=== PATIENT | female | born 1965 | race Caucasian/White ===

== ENCOUNTER 2016-06-18 23:42 | Emergency (ER) | payer BC, OTHER ==
[2016-06-19 00:02] LABS: Bilirubin Negative (Negative); Blood, Urine Large (Negative); Glucose, Urine (Dipstick) Negative (Negative); Ketone, Urine Trace mg/dL (Negative); Nitrite Negative (Negative); Protein, Urine (Dipstick) 30 mg/dL (Neg-Trace); Urobilinogen 0.2 mg/dL (0.2-1.0)
[2016-06-19] MEDS ORDERED: Morphine Sulfate 2 MG/ML SYRINGE ONE (00:04)
[2016-06-19] MEDS ORDERED: Ketorolac Tromethamine 30 MG/ML VIAL ONE (00:04)
[2016-06-19 00:05] LABS: RBC/HPF GREATER THAN 50-TNTC HPF (0-3)
[2016-06-19 00:07] LABS: Bacteria/HPF 1+ HPF (None Seen)
--- NOTE | 2016-06-19 02:26 | PICIS ---
[facility] EMERGENCY RECORD TRIAGE (WedJun 18, 2016 23:49 MBOS) TRIAGE NOTES: left flank pain, suprapubic pain, vomiting. (WedJun 18, 2016 23:49 MBOS) PATIENT: NAME: Zaira Jarquin, AGE: 50, GENDER: female, : [id number], TIME OF GREET: WedJun 18, 2016 23:43, PREFERRED LANGUAGE: Tajik, ETHNICITY: Not or , ECODE BILLING MAP: [facility], Zip Code: [address], KG WEIGHT: 62.60, PHONE: , , , PERSON ID: [id number], PCP: none. (WedJun 18, 2016 23:49 MBOS) COMPLAINT: VOMITING; LT SIDE/ABD/BACK PAIN; BLOOD IN URINE. (WedJun 18, 2016 23:49 MBOS) ADMISSION: URGENCY: 3 Urgent, ADMISSION SOURCE: Home, TRANSPORT: CAR, BED: ER -03. (WedJun 18, 2016 23:49 MBOS) ASSESSMENT: Assessment: left flank pain, started about 6 hours ago. Blood in urine last Wednesday. Vomiting the last couple of hours. (23:53 MBOS) PAIN: Patient complains of pain described as, on a scale 0-10 patient rates pain as 10. (23:53 MBOS) IMMUNIZATIONS: Flu vaccine not up to date, Tetanus immunization up to date, Pneumococcal vaccine not up to date. (23:53 MBOS) SIRS SCORING: Heart Rate 55-109 (0), Temp range 93.1-96.7 (1), respiratory rate 12-24 (0), Mental Status altered: no (0), Total SIRS Score 1. (23:53 MBOS) PROVIDERS: TRIAGE NURSE: Leslie Boggs RN. (WedJun 18, 2016 23:49 MBOS) VITAL SIGNS: BP 114/68, Pulse 64, Resp 16, Temp 96.7, (Oral), Pain 10, O2 Sat 97, on Room Air, Time 06/18/2016 23:50. (23:50 MBOS) KNOWN ALLERGIES none CURRENT MEDICATIONS (23:49 MBOS) None VITAL SIGNS VITAL SIGNS: BP: 114/68, Pulse: 64, Resp: 16, Temp: 96.7 (Oral), Pain: 10, O2 sat: 97 on Room Air, Time: 06/18/2016 23:50. (23:50 MBOS) BP: 120/68, Pulse: 64, Pain: 3, O2 sat: 96 on Room Air, Time: 06/19/2016 01:03. (WedJun 19, 2016 01:03 MBOS) NURSING PROCEDURE: DISCHARGE NOTE (WedJun 19, 2016 01:47 MBOS) DISCHARGE: Patient discharged to home, ambulating without assistance, family driving, accompanied by //partner, Summary of Care printed/ provided, Discharge instructions given to patient, Simple or moderate discharge teaching performed, Prescriptions given and instructions on side effects given, Above person(s) verbalized understanding of discharge instructions and follow-up care, Patient treated and evaluated by physician. &a-1R&a+25V*p+0X*p0286C*c152B*c15G*c2P*p-0X&a-25V&a+1RName: Zaira Jarquin Ela : F50 MedRec: [id number] AcctNum: [id number] Prepared: WedJun 19, 2016 02:00 by Interface Page 1 of 7 pMD [facility] EMERGENCY RECORD NURSING PROCEDURE: IV (WedJun 19, 2016 00:00 MBOS) PATIENT IDENITIFIER: Patient actively involved in identification process, Patient's identity verified by patient stating name, Patient's identity verified by patient stating date. IV SITE 1: IV therapy indicated for hydration, IV therapy indicated for medication administration, IV established, to the left antecubital, using a 20 gauge catheter, in one attempt, Saline lock established, Flushed with normal saline (mls): 10, Labs drawn at time of placement, labeled in the presence of the patient and sent to lab. SAFETY: Side rails up, Cart/Stretcher in lowest position, Family at bedside, Call light within reach, Hospital ID band on. NURSING PROCEDURE: TRANSPORT TO TESTS (WedJun 19, 2016 00:29 SBRA) PATIENT IDENTIFIER: Patient actively involved in identification process, Patient's identity verified by patient stating name, Patient's identity verified by hospital ID bracelet. TRANSPORT TO TESTS: Patient transported to CT scan, via cart, Accompanied by x-ray line maintenance technician, Patient arrived in location at 0018, Patient departed location at 0029. FOLLOW-UP: After procedure, patient returned to emergency department. ORDER DETAILS Order Name: CT Stone Protocol, Status: Active, Time: 23:59 06/18/2016, User: DAMIEN, - Ordered for: DO Keys Brandon, - Entered by: DO Keys Brandon - [facility] Jun 18, 2016 23:59, - Quantity: 1, Order Name: SALINE LOCK, Status: Done, Time: 00:05 06/19/2016, User: MARYCRUZ, - Ordered for: DO Keys Brandon, - Entered by: DO Keys Brandon [facility] Jun 18, 2016 23:59, - Quantity: 1, Order Name: Urinalysis w/ Rflx Microscopic, Status: Active, Time: 23:50 06/18/2016, User: MARYCRUZ, - Ordered for: DO Keys Brandon, - Entered by: NIKI Reyes Linda [facility] Jun 18, 2016 23:50, - Quantity: 1. MEDICATION ADMINISTRATION SUMMARY Drug Name: morphine injection, Dose Ordered: 4 mg, Route: IV Push, Status: Given, Time: 01:18 06/19/2016, Drug Name: morphine injection, Dose Ordered: 6 mg, Route: IV Push, Status: Given, Time: 00:10 06/19/2016, Drug Name: ketorolac injection, Dose Ordered: 30 mg, Route: IV Push, Status: Given, Time: 00:05 06/19/2016, Detailed record available in Medication Service section. MEDICATION SERVICE &a-1R&a+25V*p+0X*n9545W*c152B*c15G*c2P*p-0X&a-25V&a+1RName: Zaira Jarquin : F50 MedRec: [id number] AcctNum: [id number] Prepared: WedJun 19, 2016 02:00 by Interface Page 2 of 7 pMD [facility] EMERGENCY RECORD ketorolac injection: Order: ketorolac injection (ketorolac tromethamine) - Dose: 30 mg : IV Push Ordered by: Giorgio Keys DO Entered by: Giorgio Keys DO [facility] Jun 18, 2016 23:59 , Acknowledged by: Shanique Reyes RN WedJun 19, 2016 00:05 Documented as given by: Leslie Boggs RN WedJun 19, 2016 00:05 Patient, Medication, Dose, Route and Time verified prior to administration. IV SITE #1 IVP, initial medication, Slowly, Awake and alert- acceptable, Catheter placement confirmed via flush prior to administration, IV site without signs or symptoms of infiltration during medication administration, No swelling during administration, No drainage during administration, IV flushed after administration, Correct patient, time, route, dose and medication confirmed prior to administration, Patient advised of actions and side-effects prior to administration, Allergies confirmed and medications reviewed prior to administration, Patient in position of comfort, Side rails up, Cart in lowest position, Family at bedside. morphine injection: Order: morphine injection (morphine sulfate) - Dose: 6 mg : IV Push Ordered by: Giorgio Keys DO Entered by: Giorgio Keys DO [facility] Jun 18, 2016 23:59 , Acknowledged by: Shanique Reyes RN WedJun 19, 2016 00:05 Documented as given by: Leslie Boggs RN WedJun 19, 2016 00:10 Patient, Medication, Dose, Route and Time verified prior to administration. IV SITE #1 IVP, subsequent different medication, Slowly, Awake and alert- acceptable, Catheter placement confirmed via flush prior to administration, IV site without signs or symptoms of infiltration during medication administration, No swelling during administration, No drainage during administration, IV flushed after administration, Correct patient, time, route, dose and medication confirmed prior to administration, Patient advised of actions and side-effects prior to administration, Allergies confirmed and medications reviewed prior to administration, Patient in position of comfort, Side rails up, Cart in lowest position, Family at bedside. morphine injection: Order: morphine injection (morphine sulfate) - Dose: 4 mg : IV Push Ordered by: Giorgio Keys DO Entered by: Giorgio Keys DO WedJun 19, 2016 01:08 Documented as given by: Leslie Boggs RN WedJun 19, 2016 01:18 Patient, Medication, Dose, Route and Time verified prior to administration. IV SITE #1 IVP, subsequent different medication, Slowly, Awake and alert- acceptable, Catheter placement confirmed via flush prior to administration, IV site without signs or symptoms of infiltration during medication administration, No swelling during administration, No drainage during administration, IV flushed after administration, Correct patient, time, route, dose and medication confirmed prior to administration, Patient advised of actions and side-effects prior to administration, Allergies confirmed and medications reviewed prior to &a-1R&a+25V*p+0X*b5045F*c152B*c15G*c2P*p-0X&a-25V&a+1RName: Zaira Jarquin : F50 MedRec: [id number] AcctNum: [id number] Prepared: WedJun 19, 2016 02:00 by Interface Page 3 of 7 pMD [facility] EMERGENCY RECORD administration, Patient in position of comfort, Side rails up, Cart in lowest position, Family at bedside. HPI FLANK PAIN (WedJun 19, 2016 00:54 BLEW) CHIEF COMPLAINT: Patient presents for evaluation of flank pain, on the left. HISTORIAN: History provided by patient, Patient began having a sharp, constant L flank pain around 1800. this pain radiates around the the groin area. This pain is the same as previous episodes of kidney stones. No fever. (+) Nausea and vomiting due to pain. patient reports blood in her urine this evening. LOCATION FEMALE: Radiation, back to front, to the groin. QUALITY: Pain is sharp in nature, Described as similar to previous episodes. SEVERITY: Maximum severity of symptoms severe, Currently symptoms are severe. TIME COURSE: Sudden onset of symptoms, are constant. EXACERBATED BY: Patient's condition exacerbated by nothing. RELIEVED BY: Patient's condition relieved by nothing. ROS (WedJun 19, 2016 00:56 BLEW) CONSTITUTIONAL: Negative constitutional review of systems, Historian denies chills, denies fever. EYES: Negative eye review of systems. ENT: Negative ears, nose, throat review of systems. CARDIOVASCULAR: Negative cardiovascular review of systems, Historian denies chest pain, denies palpitations. RESPIRATORY: Negative respiratory review of systems, Historian denies cough, denies shortness of breath. GI: Negative gastrointestinal review of systems, Historian denies abdominal pain, denies constipation, denies diarrhea. MUSCULOSKELETAL: Negative musculoskeletal review of systems. SKIN: Negative skin review of systems. NEUROLOGIC: Negative neurologic review of systems. ENDOCRINE: Negative endocrine review of systems. HEMO/LYMPHATIC: Normal hematologic/lymphatic system review. PSYCHIATRIC: Negative psychiatric review of systems. NOTES: All other ROS is negative except as listed in HPI. PAST MEDICAL HISTORY MEDICAL HISTORY: Flu vaccine not up to date, Tetanus immunization up to date, Pneumococcal vaccine not up to date, Past medical history includes genitourinary history, kidney stones. (23:53 MBOS) FEMALE SURGICAL HISTORY: Patient has no surgical history, endometrial ablation, bone spur removal. (23:53 MBOS) PSYCHIATRIC HISTORY: No previous psychiatric history. (23:53 MBOS) SOCIAL HISTORY: Patient drinks socially, twice a month, Patient denies drug use, Patient currently uses tobacco, smokes &a-1R&a+25V*p+0X*n7516W*c152B*c15G*c2P*p-0X&a-25V&a+1RName: Zaira Jarquin : F50 MedRec: [id number] AcctNum: [id number] Prepared: WedJun 19, 2016 02:00 by Interface Page 4 of 7 pMD [facility] EMERGENCY RECORD cigarettes, daily, Patient smokes 1 pack per day. (23:53 MBOS) NOTES: I have reviewed and agree with the PMH/PSxH/FamHx/SocHx obtained by the nurse. (WedJun 19, 2016 00:56 BLEW) PHYSICAL EXAM (WedJun 19, 2016 00:56 BLEW) CONSTITUTIONAL: Vital signs reviewed, Patient appears non toxic, Patient alert and oriented to person, place and time, Pt is in no apparent distress. HEAD: Head exam included findings of head atraumatic, normocephalic. EYES: Eye exam included findings of eyelids normal to inspection, Pupils equally round and reactive to light, Extraocular muscles intact. ENT: ENT exam normal, Nose exam normal, no nasal deformity, no bleeding from nares, Pharynx exam normal, Mouth exam normal, mucous membranes moist. NECK: Neck exam included findings of normal range of motion, Trachea midline. RESPIRATORY CHEST: Respiratory and chest exam normal, Breath sounds clear, No wheezing, No rales, Chest exam included findings of chest movement symmetrical, Chest expansion equal. CARDIOVASCULAR: Cardiovascular assessment normal, Cardiovascular exam included findings of heart rate regular rate and rhythm, Heart sounds normal. ABDOMEN FEMALE: Bowel sounds normal, no mass, no pulsatile masses, no peritoneal signs, Patient has some tenderness to L lower abdomen. No rebound or guarding present. BACK: Back exam included findings of normal inspection, range of motion normal, no costovertebral angle tenderness. UPPER EXTREMITY: Upper extremity exam included findings of inspection normal, Range of motion normal. LOWER EXTREMITY: Lower extremity exam included findings of inspection normal, Range of motion normal. NEURO: Neuro exam findings include patient oriented to person, place and time, Speech normal, no focal motor deficits, no focal sensory deficits. SKIN: Skin exam included findings of skin warm, dry, and normal in color. LYMPHATIC: Lymphatic exam normal. PSYCHIATRIC: Psychiatric exam included findings of patient oriented to person place and time, Normal affect. EVENTS TRANSFER: Triage to Emergency Emergency Room -03. (WedJun 18, 2016 23:49 MBOS) Removed from Emergency Emergency Room -03. (WedJun 19, 2016 01:49 MBOS) PROBLEM LIST No recorded problems &a-1R&a+25V*p+0X*l8087H*c152B*c15G*c2P*p-0X&a-25V&a+1RName: Zaira Jarquin : F50 MedRec: [id number] AcctNum: [id number] Prepared: WedJun 19, 2016 02:00 by Interface Page 5 of 7 pMD [facility] EMERGENCY RECORD DIAGNOSIS (WedJun 19, 2016 00:58 BLEW) FINAL: PRIMARY: Left ureterolithiasis, ADDITIONAL: HYDROURETER. DISPOSITION (WedJun 19, 2016 01:49 MBOS) PATIENT: Disposition Type: Discharge, Disposition: *Discharge Home, Patient left the department. INSTRUCTION (WedJun 19, 2016 00:59 BLEW) DISCHARGE: URETERAL STONE W COLIC. FOLLOWUP: MD Danielle, Fili, Urology, [address] [place] [address], [place] [phone], , Follow up with Specialist in 5 days. SPECIAL: Call your doctor or return with worsening or worrisome symptoms. PRESCRIPTION (WedJun 19, 2016 00:58 BLEW) Motrin: TABLET : 800 mg : ORAL : Quantity: 1 Unit: tab(s) Route: ORAL Schedule: 3 times a day Dispense: 24 May substitute. Refills: No Refills POTENTIAL CONTRAINDICATED INTERACTION: ketorolac injection (ketorolac tromethamine) Override Rationale: Patient no longer on medication. NOTES: No Refills. [place]: TABLET : 10 mg-325 mg : ORAL : Quantity: 1 Unit: tab(s) Route: ORAL Schedule: every 6 hours PRN Dispense: 24 May substitute. Refills: No Refills . NOTES: ^s=No Refills No Refills. IMAGING PRESCRIPTION: Image captured from scanner. (WedJun 19, 2016 01:06 MBOS) *DISCHARGE INSTRUCTIONS RECEIPT: Image captured from scanner. (WedJun 19, 2016 01:48 MBOS) Page 2 added. Image captured from scanner. (WedJun 19, 2016 01:48 MBOS) *SUPPLY CHARGE SHEET: Image captured from scanner. (WedJun 19, 2016 01:48 MBOS) ADMIN (WedJun 19, 2016 00:05 [facility]) DIGITAL SIGNATURE: NIKI Reyes, Shanique. RESULTS (WedJun 19, 2016 00:24 BLEW) LABORATORY: Urine Microscopic Collection DT: WedJun 18, 2016 23:58, *RBC/HPF GREATER THAN 50-TNTC HPF, * - H , Range (0-3), *WBC/HPF 7-10 - H HPF, Range (0-3), *Squamous Epithelial 4-6 - H HPF, Range (0-3), *Bacteria/HPF 1+ - H HPF, Range (None Seen). Urinalysis w/ Rflx Microscopic Collection DT: WedJun 18, 2016 23:58, &a-1R&a+25V*p+0X*k2793C*c152B*c15G*c2P*p-0X&a-25V&a+1RName: Zaira Jarquin : F50 MedRec: [id number] AcctNum: [id number] Prepared: WedJun 19, 2016 02:00 by Interface Page 6 of 7 pMD [facility] EMERGENCY RECORD Color Yellow , Range (Yellow), Clarity Slightly Cloudy , Range (Clear), Specific [place], Urine 1.028 , Range (1.002-1.036), pH, Urine 5.5 , Range (5.0-9.0), Leukocyte Negative , Range (Negative), Nitrite Negative , Range (Negative), *Protein, Urine (Dipstick) 30 - H mg/dL, Range (Neg-Trace), Glucose, Urine (Dipstick) Negative mg/dL, Range (Negative), *Ketone, Urine Trace - H mg/dL, Range (Negative), Urobilinogen 0.2 mg/dL, Range (0.2-1.0), Bilirubin Negative , Range (Negative), *Blood, Urine Large - H , Range (Negative). Lacey: DAMIEN=DO Keys Brandon LHAL=NIKI Reyes, Shanique MBDAYRON=NIKI Boggs, Leslie SBRA=HILL Bazzi Stacey &a-1R&a+25V*p+0X*b5985M*c152B*c15G*c2P*p-0X&a-25V&a+1RName: Zaira Jarquin : F50 MedRec: [id number] AcctNum: [id number] Prepared: WedJun 19, 2016 02:00 by Interface Page 7 of 7 pMD MTDD
--- NOTE | 2016-06-19 07:17 | CT ---
RENAL CALCULUS PROTOCOL NONCONTRAST CT ABDOMEN AND PELVIS: Date: 06/19/16 CLINICAL HISTORY: Left flank pain with suprapubic pain and vomiting. FINDINGS: There is a left UVJ calculus measuring 5 mm. This results in moderate left obstructive uropathy. Pun ctate bilateral nephrolithiasis present. Right convexity curvature of the lumbar spine present. Eval uation is otherwise limited without the presence of IV or enteric contrast. IMPRESSION: 1. 5 mm moderately obstructing left UVJ calculus. 2. Multifocal bilateral punctate nephrolithiasis. POS: PURNIMAK
== END 2016-06-19 01:45 | disposition home or self-care (01) ==
LOC: NAV ERS 23:42
DX: N20.1 Calculus of ureter (principal); N13.4 Hydroureter; F17.210 Nicotine dependence, cigarettes, uncomplicated
CPT/HCPCS: 74176; 81003; 81015; 96374; 96375; 96376; J1885; J2270